=== PATIENT | female | born 1990 | race Caucasian/White ===

== ENCOUNTER 2018-10-12 21:42 | Emergency (ER) | payer BC ==
--- NOTE | 2018-10-12 22:23 | PHYS DOC ---
Past History Past Medical History: No Pertinent History Past Surgical History: No Surgical History Alcohol Use: Occasionally Drug Use: None Adult General HPI HPI Patient is a 27-year-old female, was about 3 weeks , who presents to the emergency department for evaluation. She states about 2 days ago, she developed some right breast pain and was diagnosed with mastitis. She has been taking dicloxacillin for the past 30 hours, but states that her fevers have persisted, and she feels generally ill. She has a mild headache, and pain and increasing redness on her right breast. She has not had any nausea, vomiting, diarrhea. She is pumping breast milk, but is not actually breast-feeding. However she states she is not getting much out of the right breast. There are no alleviating or exacerbating factors to the patient's symptoms except a palpation of the affected area seems to worsen her pain. Review of Systems Review of Systems Constitutional: Reports fevers, generalized malaise.[] Eyes: Denies change in visual acuity, redness, or eye pain [] HENT: Denies nasal congestion or sore throat [] Respiratory: Denies cough or shortness of breath [] Cardiovascular: The patient denies any shortness of breath, chest pain, palpitations, or orthopnea[] GI: Denies abdominal pain, nausea, vomiting, bloody stools or diarrhea [] : Denies dysuria or hematuria [] Musculoskeletal: Denies back pain or joint pain [] Integument: Denies rash or skin lesions [] Neurologic: Denies focal weakness or sensory changes or motor reports a mild headache [] Endocrine: Denies polyuria or polydipsia [] All other systems were reviewed and found to be within normal limits, except as documented in this note. Current Medications Current Medications Current Medications Medications (Trade) Dose Ordered Sig/[place] Start Time Stop Time Status Last Admin Dose Admin Acetaminophen (Tylenol) 1,000 mg 1X ONCE 10/12/18 22:30 10/12/18 22:31 Clindamycin Phosphate 50 ml @ 100 mls/hr 1X ONCE 10/12/18 22:30 10/12/18 22:59 Sodium Chloride 1,000 ml @ 1,000 mls/hr Q1H 10/12/18 22:30 10/12/18 23:29 Allergies Allergies Allergies Coded Allergies Type Severity Reaction Last Updated Verified No Known Drug Allergies 11/10/14 No Physical Exam Physical Exam PHYSICAL EXAM: CONSTITUTIONAL: Well developed, well nourished HEAD: normocephalic, atraumatic EENT: PERRL, EOMI. Conjunctivae normal color, sclerae non-icteric; moist mucous membranes. NECK: Supple, non-tender; no meningismus. LUNGS: Lungs CTA, breathing even and unlabored. Normal air movement. HEART: Regular rate and rhythm, no murmur CHEST: No deformity; non-tender ABDOMEN: The abdomen is soft, and non-tender, no masses or bruits. EXTREM: Normal ROM; no deformity, no calf tenderness. Normal pulses palpable in all extremities. There is no pedal edema. SKIN: No rash; no diaphoresis. The right breast is somewhat enlarged, compared to the left, with them firmness, warmth and erythema of the skin, consistent with mastitis. There is no discrete abscess. There is no purulent drainage NEURO: Alert; normal speech and cognition; CN's grossly intact; strength grossly intact without focal deficit. BACK: No CVA TTP. Current Patient Data Lab Results Laboratory Tests Test 10/12/18 22:21 White Blood Count 9.3 x10^3/uL Red Blood Count 4.41 x10^6/uL Hemoglobin 13.3 g/dL Hematocrit 39.4 % Mean Corpuscular Volume 89 fL Mean Corpuscular Hemoglobin 30 pg Mean Corpuscular Hemoglobin Concent 34 g/dL Red Cell Distribution Width 13.3 % Platelet Count 158 x10^3/uL Neutrophils (%) (Auto) 83 % Lymphocytes (%) (Auto) 11 % Monocytes (%) (Auto) 4 % Eosinophils (%) (Auto) 1 % Basophils (%) (Auto) 0 % Neutrophils # (Auto) 7.7 x10^3uL Lymphocytes # (Auto) 1.0 x10^3/uL Monocytes # (Auto) 0.4 x10^3/uL Eosinophils # (Auto) 0.1 x10^3/uL Basophils # (Auto) 0.0 x10^3/uL Sodium Level 134 mmol/L Potassium Level 3.1 mmol/L Chloride Level 102 mmol/L Carbon Dioxide Level 23 mmol/L Anion Gap 9 Blood Urea Nitrogen 12 mg/dL Creatinine 0.9 mg/dL Estimated GFR (Cockcroft-Gault) 76.3 BUN/Creatinine Ratio 13 Glucose Level 128 mg/dL Lactic Acid Level 1.3 mmol/L Calcium Level 9.1 mg/dL Total Bilirubin 0.3 mg/dL Aspartate Amino Transf (AST/SGOT) 19 U/L Alanine Aminotransferase (ALT/SGPT) 36 U/L Alkaline Phosphatase 103 U/L Total Protein 6.0 g/dL Albumin 2.7 g/dL Albumin/Globulin Ratio 0.8 Current Medications Medications (Trade) Dose Ordered Sig/[place] Nena Route PRN Reason Start Time Stop Time Status Last Admin Dose Admin Clindamycin Phosphate 50 ml @ 100 mls/hr 1X ONCE IV 10/12/18 22:30 10/12/18 22:59 10/12/18 22:43 Sodium Chloride 1,000 ml @ 1,000 mls/hr Q1H IV 10/12/18 22:30 10/12/18 23:29 10/12/18 22:30 Acetaminophen (Tylenol) 1,000 mg 1X ONCE PO 10/12/18 22:30 10/12/18 22:31 DC 10/12/18 22:45 EKG EKG [] Radiology/Procedures Radiology/Procedures [] Course & Med Decision Making Course & Med Decision Making Pertinent Lab studies reviewed. (See chart for details) []Patient's condition remained stable. She continues to look well. I discussed home care plan, need for close follow-up, and return precautions. We'll add Bactrim For MRSA coverage. Dragon Disclaimer Dragon Disclaimer This electronic medical record was generated, in whole or in part, using a voice recognition dictation system. Departure Departure: Impression: Primary Impression: Mastitis Disposition: 01 HOME, SELF-CARE Condition: STABLE Referrals: JACKI LEIJA MD (PCP) Patient Instructions: Mastitis Scripts Fluconazole (DIFLUCAN) 150 Mg Tablet 1 TAB PO ONCE for yeast infection, #1 TAB 1 Refill Prov: BERNARDINO KOTHARI MD 10/12/18 Sulfamethoxazole/Trimethoprim (BACTRIM DS TABLET) 1 Each Tablet 1 TAB PO BID for -, #14 TAB Prov: BERNARDINO KOTHARI MD 10/12/18 BERNARDINO KOTHARI MD Oct 12, 2018 22:23
[2018-10-12] MEDS ORDERED: ACETAMINOPHEN 500 MG TABLET PO ONE (22:30)
[2018-10-12] MEDS ORDERED: IV NORMAL SALINE 1,000ML 1,000 ML IV SCH (22:30)
[2018-10-12] MEDS ORDERED: CLINDAMYCIN 900MG PREMIX 50 ML IV ONE (22:30)
[2018-10-12 22:37] LABS: BASO % 0 % (0-3); EOS # 0.1 x10^3/uL (0.0-0.7); EOS % 1 % (0-3); HEMATOCRIT 39.4 % (36.0-47.0); HEMOGLOBIN 13.3 g/dL (12.0-15.5); LYMPH % 11 % (24-48); MEAN CORPUSCULAR HEMOGLOBIN 30 pg (25-35); MEAN CORPUSCULAR HGB CONC 34 g/dL (31-37); MEAN CORPUSCULAR VOLUME 89 fL (79-100); MONO # 0.4 x10^3/uL (0.0-1.1); MONO % 4 % (0-9); NEUT # 7.7 x10^3uL (1.8-7.7); NEUT % 83 % (31-73); PLATELET COUNT 158 x10^3/uL (140-400); RED BLOOD COUNT 4.41 x10^6/uL (3.50-5.40); RED CELL DISTRIBUTION WIDTH 13.3 % (11.5-14.5); WHITE BLOOD COUNT 9.3 x10^3/uL (4.0-11.0)
[2018-10-12 22:51] LABS: ALBUMIN 2.7 g/dL (3.4-5.0); ALBUMIN/GLOBULIN RATIO 0.8 (1.0-1.7); CALCIUM 9.1 mg/dL (8.5-10.1); CREATININE 0.9 mg/dL (0.6-1.0); GFR 76.3; POTASSIUM 3.1 mmol/L (3.5-5.1); TOTAL BILIRUBIN 0.3 mg/dL (0.2-1.0)
[2018-10-12] MEDS ORDERED: SULF1TAB24 PO (23:03)
[2018-10-12] MEDS ORDERED: FLUC150T PO (23:33)
[2018-10-12 23:35] VITALS: BP 113/62
== END 2018-10-12 23:40 | disposition home or self-care (01) ==
LOC: ER 21:42
DX: O91.22 Nonpurulent mastitis associated with the puerperium (principal); R51 Headache; Z98.890 Other specified postprocedural states
CPT/HCPCS: 36415; 80053; 83605; 85025; 87040; 96365; 99283; J3490; J7030

== ENCOUNTER 2021-07-21 20:28 | Emergency (ER) | payer BC, OTHER ==
[~2021-07-21] VITALS: Ht 160 cm; Wt 71.6 kg
[~2021-07-21 20:28] MED LIST: FLUC150T PO; SULF1TAB24 PO
--- NOTE | 2021-07-21 21:27 | PHYS DOC ---
Past History Past Medical History: Depression, Other Past Surgical History: Other Alcohol Use: None Drug Use: Opiates Adult General Chief Complaint Chief Complaint: HEADACHE HPI HPI Patient is a 30 year old female who presents with elevated blood pressure and a headache. She reports that she woke up this morning with a headache. She reports frequent headaches at the base of her head to her ears and occasionally hears a "whooshing" heartbeat in her left ear. She reports that she usually does not wake up with a headache. Around 7pm, the patient was putting together a children's toy when she started having an increased headache and feeling thirsty. She went to the kitchen for water where she checked her blood pressure on both arms with systolic BP 170s. At 8pm she said she began to feel chest pain and increased blood pressure 200/130 on her home blood pressure cuff and came to the ED with her mother. She reports her PCP has told her to check her blood pressure with her family history of heart problems including paternal grandfather [place] at age 32, father [place] at 45 with catheter intervention, and her twin and mother with HTN. She has not been formally diagnosed with HTN in the past. She has recently decreased her tobacco use to less than 6 cigarettes a day and is taking Wellbutrin. She is established with a local oil well services superintendent and has been recently seen but denies any significant provocative cardiac work-up in outpatient setting. She does admit she is scheduled for a cardiac calcium scan in September Review of Systems Review of Systems Fourteen body systems of review of systems have been reviewed. See HPI for pertinent positives and negative responses, other sun all other systems are negative, non-pertinent or non-contributory Allergies Allergies Allergies Coded Allergies Type Severity Reaction Last Updated Verified No Known Drug Allergies 11/10/14 No Physical Exam Physical Exam Constitutional: Well developed, well nourished, no acute distress, non-toxic appearance. HENT: Normocephalic, atraumatic, bilateral external ears normal, oropharynx moist, no oral exudates, nose normal. Eyes: PERRLA, EOMI, conjunctiva normal, no discharge. Neck: Normal range of motion, no tenderness, supple, no stridor. No meningeal signs, no nuchal rigidity Cardiovascular: Heart rate regular, sinus rhythm, no murmurs rubs or gallops Lungs & Thorax: Bilateral breath sounds clear to auscultation Abdomen: Bowel sounds normal, soft, no tenderness, no masses, no pulsatile masses. Nonsurgical abdomen, no peritoneal signs Skin: Warm, dry, no erythema, no rash. Back: No tenderness, no CVA tenderness. Extremities: No tenderness, no cyanosis, no clubbing, ROM intact, no edema. Neurologic: Alert and oriented X 3, cranial nerves II through XII intact, normal motor & sensory function, no focal deficits noted. Psychologic: Affect normal, judgement normal, mood normal. Current Patient Data Vital Signs Vital Signs Date Time Temp Pulse Resp B/P (MAP) Pulse Ox O2 Delivery O2 Flow Rate FiO2 07/21/21 21:05 166/107 (126) 07/21/21 21:03 98.0 82 22 99 Room Air Lab Results Laboratory Tests Test 07/21/21 21:40 07/21/21 21:47 07/21/21 22:01 Urine Collection Type Unknown Urine Color Yellow Urine Clarity Clear Urine pH 6.5 Urine Specific Dunbar 1.025 Urine Protein Neg Urine Glucose (UA) Neg mg/dL Urine Ketones (Stick) Neg mg/dL Urine Blood Trace Urine Nitrite Neg Urine Bilirubin Neg Urine Urobilinogen Dipstick 0.2 mg/dL Urine Leukocyte Esterase Neg Urine RBC 1-2 /HPF Urine WBC 1-4 /HPF Urine Squamous Epithelial Cells Mod /LPF Urine Bacteria Few /HPF Bedside Urine HCG, Qualitative hcg negative White Blood Count 6.1 x10^3/uL Red Blood Count 4.32 x10^6/uL Hemoglobin 12.2 g/dL Hematocrit 37.4 % Mean Corpuscular Volume 86 fL Mean Corpuscular Hemoglobin 28 pg Mean Corpuscular Hemoglobin Concent 33 g/dL Red Cell Distribution Width 14.0 % Platelet Count 223 x10^3/uL Neutrophils (%) (Auto) 62 % Lymphocytes (%) (Auto) 25 % Monocytes (%) (Auto) 11 % Eosinophils (%) (Auto) 2 % Basophils (%) (Auto) 1 % Neutrophils # (Auto) 3.8 x10^3uL Lymphocytes # (Auto) 1.5 x10^3/uL Monocytes # (Auto) 0.6 x10^3/uL Eosinophils # (Auto) 0.1 x10^3/uL Basophils # (Auto) 0.0 x10^3/uL Sodium Level 140 mmol/L Potassium Level 3.8 mmol/L Chloride Level 104 mmol/L Carbon Dioxide Level 29 mmol/L Anion Gap 7 Blood Urea Nitrogen 15 mg/dL Creatinine 1.1 mg/dL Estimated GFR (Cockcroft-Gault) 59.1 BUN/Creatinine Ratio 14 Glucose Level 86 mg/dL Calcium Level 8.8 mg/dL Total Bilirubin < 0.1 mg/dL Aspartate Amino Transf (AST/SGOT) 17 U/L Alanine Aminotransferase (ALT/SGPT) 17 U/L Alkaline Phosphatase 80 U/L Total Protein 6.7 g/dL Albumin 3.6 g/dL Albumin/Globulin Ratio 1.2 Current Medications Medications (Trade) Dose Ordered Sig/[place] Nena Route PRN Reason Start Time Stop Time Status Last Admin Dose Admin Aspirin (Aspirin Chewable) 162 mg 1X ONCE PO 07/21/21 22:30 07/21/21 22:31 DC 07/21/21 23:13 EKG EKG EKG ordered and interpreted by myself at 2159 hrs. as sinus rhythm at 82 bpm, QTC 496 otherwise unremarkable intervals, no axis deviation, no obvious ischemic findings, no STEMI Radiology/Procedures Radiology/Procedures AP chest. HISTORY: Headache, chest pain AP view was taken of the chest. Lungs are clear. Heart is normal in size. There is no pleural effusion. IMPRESSION: 1. No acute chest disease. Electronically signed by: Malik Guardado MD (07/21/2021 10:44 PM) [facility] Heart Score C/O Chest Pain: Yes HEART Score for Chest Pain: HEART Score for Chest Pain Response (Comments) Value History Slighlty/Non-Suspicious 0 ECG Normal 0 Age < 45 0 Risk Factors 1 or 2 Risk Factors 1 Troponin < Normal Limit 0 Total 1 Risk Factors: Risk Factors: DM, Current or recent (<one month) smoker, HTN, HLP, family his tory of CAD, obesity. Risk Scores: Risk Factors: DM, Current or recent (<one month) smoker, HTN, HLP, family history of CAD, obesity. Course & Med Decision Making Course & Med Decision Making Airway patent, breathing unlabored, IV access and vitals obtained concerning for slight hypertension only HPI physical exam and comprehensive ER work-up nonconcerning for any emergent or surgical issues I discussed elevated blood pressure without formal diagnosis of hypertension. This improved without any intervention but remained elevated greater than 150 systolic throughout entirety of ER visit. Discussed modifiable risk factors at length with patient Patient's headache nonconcerning for any emergent or surgical issues requiring further diagnostic work-up, no meningeal signs, no other neurologic signs or history concerning for SAH I disclosed entirety of ER findings at length with were nonconcerning. I did discuss prolonged QT interval that could be related to patient's father and grandfather's early cardiac , continued outpatient work-up on this advised Regarding patient's headache, patient has been using NSAIDs in addition to continued tobacco abuse. Physical exam consistent with tension type headache. With that said she also has elevated blood pressure which I am concerned for new diagnosis of hypertension and offered meds Ultimately, joint decision was made for patient to discharge home with continued supportive care practices for tension headache such as stretches, heat, Tylenol for pain and avoidance of NSAIDs and tobacco use. She will keep a blood pressure log and report to primary care and oil well services superintendent this week for review of this in addition to need for close outpatient follow-up on prolonged QT and med review Strict return precautions discussed at length with good understanding by patient and mother, all questions and concerns addressed prior to ER departure [place] Disclaimer Dragon Disclaimer This electronic medical record was generated, in whole or in part, using a voice recognition dictation system. Departure Departure: Impression: Primary Impression: Headache Additional Impressions: Chest pain Prolonged QT interval Elevated blood pressure reading Disposition: HOME / SELF CARE / HOMELESS Condition: STABLE Referrals: JACKI LEIJA MD (PCP) Additional Instructions: You were seen for multiple symptoms. Your workup did not show any acute abnormalities today, but does not indicate that you do not have underlying cardiovascular disease. You do need to follow up with your primary doctor and your oil well services superintendent for further evaluation and treatment. As discussed you have a headache that is likely tension in origin and should respond to Tylenol use, heat application and neck stretches. It could also be due to elevated blood pressures and so, as discussed at length, you need to keep a dedicated blood pressure log and review this with your oil well services superintendent to discuss potential diagnosis of high blood pressure/hypertension in need for medical therapy. You were also found to have a prolonged QT interval which is electricity in your heart, this might have preexposed your father and grandfather to early cardiac issues. This should be mention to your oil well services superintendent for further evaluation in outpatient setting. Sometimes medications can cause this finding, other times its congenital/genetic. You should return to the ED if you develop worsening chest pain, shortness of breath, fever, abnormal sweating, leg swelling, or any other new or concerning symptoms. Problem Qualifiers LIANG DUDLEY DO Jul 21, 2021 21:27
[2021-07-21 22:08] LABS: BILIRUBIN,URINE NEG (NEG); CLARITY,URINE CLEAR; COLOR,URINE YELLOW; GLUCOSE,URINE NEG (NEG); NITRITE,URINE NEG (NEG); UROBILINOGEN,URINE 0.2 mg/dL (0.2 mg/dL)
[2021-07-21 22:09] LABS: BACTERIA,URINE FEW /HPF (0-FEW); SQUAMOUS EPITHELIAL CELL,UR MOD /LPF
[2021-07-21 22:17] LABS: BASO % 1 % (0-3); EOS # 0.1 x10^3/uL (0.0-0.7); EOS % 2 % (0-3); HEMATOCRIT 37.4 % (36.0-47.0); HEMOGLOBIN 12.2 g/dL (12.0-15.5); LYMPH # 1.5 x10^3/uL (1.0-4.8); LYMPH % 25 % (24-48); MEAN CORPUSCULAR HEMOGLOBIN 28 pg (25-35); MEAN CORPUSCULAR HGB CONC 33 g/dL (31-37); MEAN CORPUSCULAR VOLUME 86 fL (79-100); MONO # 0.6 x10^3/uL (0.0-1.1); MONO % 11 % (0-9); NEUT # 3.8 x10^3uL (1.8-7.7); NEUT % 62 % (31-73); PLATELET COUNT 223 x10^3/uL (140-400); RED BLOOD COUNT 4.32 x10^6/uL (3.50-5.40); WHITE BLOOD COUNT 6.1 x10^3/uL (4.0-11.0)
[2021-07-21] MEDS ORDERED: ASPIRIN CHEWABLE 81 MG TABLET. PO ONE (22:30)
[2021-07-21 22:33] LABS: ANION GAP 7 (6-14); BLOOD UREA NITROGEN 15 mg/dL (7-20); BUN/CREATININE RATIO 14 (6-20); CALCIUM 8.8 mg/dL (8.5-10.1); CARBON DIOXIDE 29 mmol/L (21-32); CHLORIDE 104 mmol/L (98-107); CREATININE 1.1 mg/dL (0.6-1.0); GFR 59.1; GLUCOSE 86 mg/dL (70-99); POTASSIUM 3.8 mmol/L (3.5-5.1); SODIUM 140 mmol/L (136-145)
[2021-07-21 22:36] LABS: ALBUMIN 3.6 g/dL (3.4-5.0); ALBUMIN/GLOBULIN RATIO 1.2 (1.0-1.7); ALK PHOS 80 U/L (46-116); ALT (SGPT) 17 U/L (14-59); AST (SGOT) 17 U/L (15-37); TOTAL PROTEIN 6.7 g/dL (6.4-8.2)
[2021-07-21 22:37] LABS: TOTAL BILIRUBIN < 0.1 mg/dL (0.2-1.0)
--- NOTE | 2021-07-21 22:47 | RAD ---
AP chest. HISTORY: Headache, chest pain AP view was taken of the chest. Lungs are clear. Heart is normal in size. There is no pleural effusio n. IMPRESSION: 1. No acute chest disease. Electronically signed by: Malik Guardado MD (07/21/2021 10:44 PM) [facility] [place]
[2021-07-21 23:14] VITALS: BP 170/117
--- NOTE | 2021-07-22 03:40 | EKG ---
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
== END 2021-07-21 23:22 | disposition home or self-care (01) ==
LOC: ER 20:28
DX: R51.9 Headache, unspecified (principal); R07.89 Other chest pain; R94.31 Abnormal electrocardiogram [ECG] [EKG]; R03.0 Elevated blood-pressure reading, without diagnosis of hypertension
CPT/HCPCS: 36415; 71045; 80053; 81001; 81025; 85025; 93005; 99285-25